=== PATIENT | male | born 1955 ===

== ENCOUNTER 2021-05-05 14:16 | Emergency (ER) | payer SELFPAY ==
[~2021-05-05] VITALS: Ht 172.7 cm; Wt 72.7 kg
[2021-05-05 15:00] VITALS: BP 188/90
[2021-05-05] MEDS ORDERED: IBUPROFEN 600 MG TABLET PO ONE (16:45)
[2021-05-05] MEDS ORDERED: LIDOCAINE 5% TRANSDERMAL PATCH TD ONE (16:45)
== END 2021-05-05 17:58 | disposition home or self-care (01) ==
LOC: EMS 14:16
DX: M25.512 Pain in left shoulder (principal); E11.9 Type 2 diabetes mellitus without complications; I10 Essential (primary) hypertension; V98.8XXA Other specified transport accidents, initial encounter; Y93.89 Activity, other specified; Y92.89 Other specified places as the place of occurrence of the external cause; Y99.8 Other external cause status
CPT/HCPCS: 72100; 82962; 99284